=== PATIENT | female | born 2000 | race Caucasian/White ===

== ENCOUNTER 2024-11-11 20:04 | Inpatient (IN) | payer OTHER, MEDICAID ==
[~2024-11-11] VITALS: Ht 157.5 cm; Wt 72.6 kg
[2024-11-11 20:17] VITALS: O2SAT 99
[2024-11-11] MEDS: KETOROLAC 15MG/ML VIAL IM ONE (20:42)
[2024-11-11] MEDS: ONDANSETRON HCL 4MG TABLET PO ONE (20:42)
[2024-11-11 21:05] LABS: BASOPHILS % 0.3 % (0.0-2.0); HEMATOCRIT. 45.4 % (36.0-48.0); HEMOGLOBIN. 15.5 g/dL (12.0-16.0); LYMPHOCYTES % 18.7 % (20.0-50.0); MEAN CORPUSCULAR HEMOGLOBIN 28.9 pg (28.0-32.0); MEAN CORPUSCULAR HGB CONC 34.2 g/dL (31.0-37.0); MEAN CORPUSCULAR VOLUME 84.4 fL (81.0-99.0); MEAN PLATELET VOLUME 7.9 fl (7.4-10.4); MONOCYTES % 8.3 % (2.0-8.0); NEUTROPHILS % 72.7 % (40.0-76.0); PLATELET 417 x1000/uL (130-400); RED BLOOD CELL COUNT 5.38 mill/uL (4.2-5.4); WHITE BLOOD COUNT 8.6 x1000/uL (4.5-11.0)
[2024-11-11 21:14] LABS: CARBON DIOXIDE 20 mEq/L (21-32); CHLORIDE 102 mEq/L (98-107); SODIUM 137 mEq/L (136-145)
[2024-11-11 21:19] LABS: CREATININE 0.7 mg/dL (0.6-1.0)
[2024-11-11 21:20] LABS: GLUCOSE 105 mg/dL (70-105); HCG SCREEN NEGATIVE; UREA NITROGEN BLOOD 10 mg/dL (9-23)
[2024-11-11 21:21] LABS: ALANINE AMINOTRANSFERASE 13 IU/L (10-49); ALBUMIN 5.1 g/dL (3.2-4.8); ASPARTATE AMINOTRANSFERASE 12 IU/L (<34)
[2024-11-11 21:22] LABS: BILIRUBIN DIRECT 0.3 mg/dL (<=3.0); BILIRUBIN TOTAL 0.7 mg/dL (0.1-1.0); PROTEIN TOTAL 8.5 g/dL (6.0-8.3)
[2024-11-11] MEDS ORDERED: DICYCLOMINE HCL 10MG CAPSULE PO ONE (22:30)
[2024-11-11] MEDS: DICYCLOMINE HCL 10MG CAPSULE PO SCH (22:34)
[2024-11-11] MEDS: MAGNESIUM/ALUMINUM HYDROXIDE/SIMETHICONE 30ML UDC PO ONE (22:35)
[2024-11-11] MEDS: FAMOTIDINE 20MG TABLET PO ONE (22:35)
[2024-11-11 23:33] LABS: CLARITY URINE CLOUDY (CLEAR); COLOR URINE DARK YELLOW (YELLOW); GLUCOSE URINE NEGATIVE (NEGATIVE); KETONES URINE 4+ (NEGATIVE); LEUKOCYTE ESTERASE URINE TRACE (NEGATIVE); NITRITE URINE NEGATIVE (NEGATIVE); OCCULT BLOOD URINE TRACE (NEGATIVE); PH URINE 6.5 (4.5-8.0); PROTEIN URINE 3+ (NEGATIVE); SPECIFIC GRAVITY URINE 1.038 (1.005-1.030)
[2024-11-12] MEDS ORDERED: ONDA4TAB50 MT (00:02)
[2024-11-12] MEDS ORDERED: MAG-55 MT (00:02)
[2024-11-12 03:13] LABS: SQUAMOUS EPITHELIAL CELL URINE 1+ /lpf (RARE/1+)
[2024-11-12 03:18] LABS: WBC URINE 0-2 /hpf (0-2)
[2024-11-12 03:20] LABS: BACTERIA URINE 2+
[2024-11-12] MEDS ORDERED: ACETAMINOPHEN 325MG TABLET PO PRN (03:30)
[2024-11-12] MEDS: SODIUM CHLORIDE 0.45% 1,000 ML IV SCH (03:44)
[2024-11-12] MEDS: PANTOPRAZOLE SODIUM 40 MG/VIAL IV SCH ×2 (03:48→08:36)
[2024-11-12] MEDS: HYDROCODONE/ACETAMINOPHEN 5/325MG TABLET PO PRN (04:27)
[2024-11-12] MEDS ORDERED: IOHEXOL-300 100 ML BOTTLE ONE (04:41)
[2024-11-12 04:45] VITALS: BP 104/63; PULSE 69; RESP 18; TEMP 36.7; O2SAT 99
[2024-11-12 05:25] VITALS: BP 154/53; PULSE 69; RESP 18; TEMP 36.7
[2024-11-12 08:00] VITALS: BP 113/75; PULSE 73; RESP 18; TEMP 36.5; O2SAT 100
[2024-11-12] MEDS: THIAMINE HCL 100MG TABLET PO SCH (08:36)
[2024-11-12] MEDS: ENOXAPARIN 40MG/0.4ML SYR SUBCUT SCH (08:36)
[2024-11-12] MEDS: POTASSIUM CHLORIDE 20MEQ/PACKET PO SCH (08:37)
[2024-11-12] MEDS: ONDANSETRON HCL 4MG/2ML INJ IV PRN (08:48)
[2024-11-12 09:59] LABS: *AMPHETAMINES SCREEN URINE NEGATIVE (NEGATIVE); *BARBITURATES SCREEN URINE NEGATIVE (NEGATIVE); *BENZODIAZEPINES SCREEN URINE NEGATIVE (NEGATIVE); *COCAINE SCREEN URINE NEGATIVE (NEGATIVE); CANNABINOID URINE SCREEN PRESUMPTIVE POSITIVE (NEGATIVE); ECSTASY MDMA SCREEN URINE NEGATIVE (NEGATIVE); METHADONE URINE SCREEN NEGATIVE (NEGATIVE); OPIATES URINE SCREEN NEGATIVE (NEGATIVE); PHENCYCLIDINE URINE SCREEN NEGATIVE (NEGATIVE)
[2024-11-12] MEDS: MAGNESIUM/ALUMINUM HYDROXIDE/SIMETHICONE 30ML UDC PO PRN (11:34)
[2024-11-12] MEDS: ACETAMINOPHEN 325MG TABLET PO PRN (11:36)
[2024-11-12 12:00] VITALS: BP 115/66; PULSE 64; RESP 18; TEMP 36.6; O2SAT 99
[2024-11-12 16:00] VITALS: BP 115/61; PULSE 64; RESP 18; TEMP 37.1; O2SAT 99
[2024-11-12 20:00] VITALS: BP 106/67; PULSE 56; RESP 20; TEMP 36.6; O2SAT 100
[2024-11-13] VITALS: BP 91/52; PULSE 68; RESP 20; TEMP 36.6; O2SAT 100
[2024-11-13 04:00] VITALS: BP 106/61; PULSE 63; RESP 20; TEMP 36.3; O2SAT 98
[2024-11-13 06:26] LABS: BASOPHILS % 1.5 % (0.0-2.0); EOSINOPHILS % 4.6 % (0.0-5.0); HEMATOCRIT. 35.8 % (36.0-48.0); HEMOGLOBIN. 12.2 g/dL (12.0-16.0); LYMPHOCYTES % 48.1 % (20.0-50.0); MEAN CORPUSCULAR HEMOGLOBIN 29.1 pg (28.0-32.0); MEAN CORPUSCULAR HGB CONC 34.1 g/dL (31.0-37.0); MEAN CORPUSCULAR VOLUME 85.4 fL (81.0-99.0); MONOCYTES % 10.8 % (2.0-8.0); PLATELET 291 x1000/uL (130-400); RED BLOOD CELL COUNT 4.19 mill/uL (4.2-5.4); RED CELL DISTRIBUTION WIDTH 12.9 % (11.6-14.6); WHITE BLOOD COUNT 5.7 x1000/uL (4.5-11.0)
[2024-11-13 06:30] LABS: CARBON DIOXIDE 24 mEq/L (21-32); CHLORIDE 107 mEq/L (98-107); POTASSIUM 3.5 mEq/L (3.5-5.1); SODIUM 140 mEq/L (136-145)
[2024-11-13 06:31] LABS: CALCIUM 8.3 mg/dL (8.7-10.4)
[2024-11-13 06:36] LABS: CREATININE 0.7 mg/dL (0.6-1.0); GLUCOSE 71 mg/dL (70-105); UREA NITROGEN BLOOD 6 mg/dL (9-23)
[2024-11-13 08:00] VITALS: BP 105/62; RESP 19; TEMP 36.4; O2SAT 97
[2024-11-13 12:00] VITALS: BP 125/79; PULSE 80; RESP 19; TEMP 36.7; O2SAT 100
[2024-11-13] MEDS ORDERED: POLY17PO3 MT (15:23)
[2024-11-13 15:57] VITALS: BP 120/72; PULSE 86; RESP 20; TEMP 36.7; O2SAT 100
== END 2024-11-13 16:56 | disposition home or self-care (01) | DRG 249 ==
LOC: ER 20:04 → EDBEDREQ 11-12 03:24 → EDBEDREQTM 11-12 03:24 → ENRESERV 11-12 03:41 → 8EST 11-12 04:40
PROVIDERS: ADMIT Internal Medicine; ATTEND Internal Medicine
DX: A08.4 Viral intestinal infection, unspecified (principal); R65.10 Systemic inflammatory response syndrome (SIRS) of non-infectious origin without acute organ dysfunction; J45.909 Unspecified asthma, uncomplicated; F12.10 Cannabis abuse, uncomplicated; A05.9 Bacterial foodborne intoxication, unspecified; E87.6 Hypokalemia; K59.00 Constipation, unspecified
CPT/HCPCS: 36415; 74178; 76705; 80048; 80076; 80305; 81003; 84703; 85025; 99285; J1650; J1885; J2405; J2470; Q0162; Q9967